=== PATIENT | male | born 1945 | race American Indian/Alaskan Native ===

== ENCOUNTER 2019-07-07 19:18 | Inpatient (IN) | payer MEDICARE ==
[2019-07-08] MEDS ORDERED: HALOPERIDOL LACTATE 5 MG/1 ML INJ IM PRN (21:12)
[2019-07-08] MEDS ORDERED: HALOPERIDOL 5 MG TAB PO PRN (21:12)
[2019-07-08] MEDS ORDERED: LORazepam 2 MG/ML VIAL IM PRN (21:12)
[2019-07-08] MEDS ORDERED: traZODone 50 MG TAB PO PRN (21:12)
[2019-07-08] MEDS: MELATONIN 5 MG TAB PO SCH (22:53)
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
[2019-07-09 10:03] LABS: Basophils # (Auto) 0.1 K/mm3 (0.0-0.1); Basophils % (Auto) 0.8 % (0.0-1.8); Eosinophils # (Auto) 0.1 K/mm3 (0.0-0.4); Eosinophils % (Auto) 0.9 % (0.0-4.3); Hematocrit 42.6 % (35.5-45.6); Hemoglobin 14.6 gm/dl (11.8-15.2); Lymphocytes # (Auto) 1.4 K/mm3 (1.2-5.4); Lymphocytes % (Auto) 19.5 % (13.4-35.0); Mean Corpuscular HGB Conc 34 % (32-34); Mean Corpuscular Volume 92 fl (84-94); Monocytes # (Auto) 0.7 K/mm3 (0.0-0.8); Monocytes % (Auto) 9.4 % (0.0-7.3); Platelet Count 247 K/mm3 (140-440); Red Blood Count 4.62 M/mm3 (3.65-5.03); Red Cell Distribution Width 13.3 % (13.2-15.2)
[2019-07-09 10:15] LABS: BUN/Creatinine Ratio 14; Blood Urea Nitrogen 15 mg/dL (9-20); Calcium 9.7 mg/dL (8.4-10.2); Chol/HDL Ratio 3.03 %; HDL Cholesterol 66 mg/dL (40-59); Hemolysis Index 7; LDL Cholesterol,Direct 124 mg/dL (50-130)
--- NOTE | 2019-07-09 15:54 | Consultation ---
History of Present Illness - Reason for Consult Consult date: 07/09/19 Medical management Requesting physician: TEZ SANDHU - History of Present Illness Patient is a 74-year-old male with no significant past medical history that I could see from chart review and patient is a poor historian except for early dementia and some aggressive behavior who is being admitted to our facility for mood stabilization and were consulted to assist with management of medical iss ues. Patient at the time of my examination denies any chest pain nausea vomiting or diarrhea. He continues to state that he would like to call his and has been calling her number she is now picking up. He is unable to tell me what medications that he is on at this time. He is ambulatory walking around without any complaints. SOCIAL HISTORY Marital Status: Living Arrangements: Lives with and children Employment Status: Retired Access to guns/weapons: NO Education: 3 years of College History of Abuse: NONE Alcohol: Social Drinker Tobacco: NO Legal History: NONE Past History Past Medical History: other (Dementia Alzheimer type) Past Surgical History: No surgical history Family history: no significant family history Medications and Allergies Allergies Allergy/AdvReac Type Severity Reaction Status Date / Time No Known Allergies Allergy Verified 07/07/19 19:24 Home Medications Medication Instructions Recorded Confirmed Last Taken Type No Known Home Medications [No 07/09/19 07/09/19 Unknown History Reported Home Medications] Active Meds: Active Medications Haloperidol (Haldol) 5 mg PO Q6H PRN PRN Reason: Agitation Haloperidol Lactate (Haldol) 5 mg IM Q6H PRN PRN Reason: Agitation Lorazepam (Ativan) 2 mg IM Q6H PRN PRN Reason: Agitation Melatonin (Melatonin) 5 mg PO QHS [facility] Last Admin: 07/08/19 22:53 Dose: Not Given Documented by: Trazodone HCl (Desyrel) 50 mg PO QHS PRN PRN Reason: insomnia Review of Systems Constitutional: no weight loss, no weight gain, no fever, no chills, no fatigue, no malaise, no lethargy Cardiovascular: no orthopnea, no palpitations, no edema, no paroxysmal nocturnal dyspnea, no high blood pressure Respiratory: no cough with sputum, no hemoptysis, no shortness of breath Gastrointestinal: no abdominal pain, no diarrhea, no constipation, no change in bowel habits, no melena Genitourinary Male: no hematuria, no discharge, no urinary hesitancy, no incontinence, no decreased libido, no testicular lump Musculoskeletal: no neck pain, no arm numbness/tingling, no shooting leg pain, no morning stiffness, no loss of height Integumentary: no pruritis, no sores, no jaundice, no lesions, no dryness, no striae, no onychomycosis Neurological: no transient paralysis, no numbness, no syncope, no ataxia, no vertigo, no confusion, no double vision, no burning pain Psychiatric: memory loss, paranoia, confusion, no change in sleep habits, no hypersomnia, no hopelessness, no difficulties concentrating Endocrine: no cold intolerance, no excessive thirst, no flushing Allergic/Immunologic: no urticaria, no angioedema Exam - Physical Exam Narrative exam: VITAL SIGNS: Reviewed. GENERAL: The patient appears normally developed, Vital signs as documented. HEAD: No signs of head trauma. EYES: Pupils are equal. Extraocular motions intact. EARS: Hearing grossly intact. MOUTH: Oropharynx is normal. NECK: No adenopathy, no JVD. CHEST: Chest with clear breath sounds bilaterally. No wheezes, rales, or rhonchi. CARDIAC: Regular rate and rhythm. S1 and S2, without murmurs, gallops, or rubs. VASCULAR: No Edema. Peripheral pulses normal and equal in all extremities. ABDOMEN: Soft, non tender and non distended. No rebound or guarding, and no masses palpated. Bowel Sounds normal. MUSCULOSKELETAL: Good range of motion of all major joints. Extremities without clubbing, cyanosis or edema. NEUROLOGIC EXAM: Alert and oriented x 3 No focal sensory or strength deficits. Speech normal. Follows commands. PSYCHIATRIC: Mood normal. SKIN: detial exam as documented in skin assessment - Constitutional Vitals: Temp Pulse Resp BP Pulse Ox 98.1 F 111 H 16 123/69 100 07/09/19 09:01 07/09/19 09:01 07/09/19 09:01 07/09/19 09:01 07/09/19 09:01 Results - Labs CBC & Chem 7: 07/09/19 09:32 07/09/19 09:32 Labs: Abnormal lab results 07/09/19 07/09/19 Range/Units 09:32 09:32 [place] % (Auto) 9.4 H (0.0-7.3) % Sodium 131 L (137-145) mmol/L Chloride 94.2 L (98-107) mmol/L Carbon Dioxide 21 L (22-30) mmol/L Glucose 113 H (75-100) mg/dL Cholesterol 200 H (50-199) mg/dL HDL Cholesterol 66 H (40-59) mg/dL Assessment and Plan Patient is a 74-year-old male with no significant past medical history that I could see from chart review and patient is a poor historian except for early dementia and some aggressive behavior who is being admitted to our facility for mood stabilization and were consulted to assist with management of medical issues. Patient at the time of my examination denies any chest pain nausea vomiting or diarrhea. He continues to state that he would like to call his and has been calling her number she is now picking up. He is unable to tell me what medications that he is on at this time. He is ambulatory walking around without any complaints. Hyponateremia Dementia-Alzheimer's type mood disorder plan Continue supportive care Management per Luther Repeat sodium level to ensure resolution dvt/gi prophy- pt ambulating and eating will follow with you to ensure hyponatremia resolution Thank you for the consult
[2019-07-09] MEDS ORDERED: oxyCODONE 5 MG TAB PO PRN (20:46)
[2019-07-09] MEDS: MELATONIN 5 MG TAB PO SCH (21:19)
--- NOTE | 2019-07-10 07:22 | Progress Note ---
Subjective Date of service: 07/10/19 Subjective Comment: I interviewed the patient this morning. Medical records reviewed and patient's progress was discussed with unit staff. Nursing staff reports that patient is alert and oriented x's 1. he stated he is at [employer]. patient is confused, calm, and cooperative. ambulates independently. skin intact. denies si/hi/avh/pain. will continue to monitor for safety. In my interview with the patient this morning, the patient reports he's in a good mood. He says his appetite is well and he is asking for breakfast during interview. He says he slept well last night. Mr Matamoros denies SI/HI. He also denies hallucinations of any kind. He is calm and cooperative. Review of Symptoms: Constitutional: Negative for weight loss ENT: Negative for stridor Respiratory: Negative for cough or hemoptysis All other systems reviewed and are negative MSE Appearance: Wearing appropriate clothing. Good hygiene Behavior: Pleasant and cooperative. Mood: "Good" Affect: Congruent with stated mood Thought Process: Goal directed Speech: Normal rate. Thought Content Harmfulness Denies SI/HI Hallucinations: patient denies Delusions: none elicited Consciousness: alert. Cognition/Memory: normal. Insight/Judgment: Limited. Treatment Plan Due to the psychiatric conditions and treatment listed in the Assessment and Plan - the patient requires continued hospitalization. Will continue inpatient treatment to allow for medication adjustment and monitoring. Will continue q15 min safety checks. Will encourage the use of environmental modifications and non-pharmacologic approaches for the management of behavioral and psychological symptoms. Medication adjustment made today: --- Will continue current psych medications Monitor for medication side effects. The patient will continue on medications for physical illnesses, and Hospitalist will closely monitor these Continue intensive physical and occupational therapies. Monitor patient's mood, sleep, appetite, and behavior closely. Encourage patient to participate in individual and group therapeutic sessions on the fermin. Will provide a safe and therapeutic environment for patient. Estimated length of stay --- days Medications and Allergies Allergies Allergy/AdvReac Type Severity Reaction Status Date / Time No Known Allergies Allergy Verified 07/07/19 19:24 Home Medications Medication Instructions Recorded Confirmed Last Taken Type No Known Home Medications [No 07/09/19 07/09/19 Unknown History Reported Home Medications] Active Meds: Active Medications Fish Oil (Fish Oil) 2,000 mg PO BID KYLE Haloperidol (Haldol) 5 mg PO Q6H PRN PRN Reason: Agitation Haloperidol Lactate (Haldol) 5 mg IM Q6H PRN PRN Reason: Agitation Lorazepam (Ativan) 2 mg IM Q6H PRN PRN Reason: Agitation Melatonin (Melatonin) 5 mg PO QHS [facility] Last Admin: 07/09/19 21:19 Dose: 5 mg Documented by: Oxycodone HCl (Roxicodone) 10 mg PO Q8H PRN PRN Reason: Pain, Moderate (4-6) Thiamine HCl (Vitamin B-1) 100 mg PO QDAY [facility] Trazodone HCl (Desyrel) 50 mg PO QHS PRN PRN Reason: insomnia Results - Results Labs/Vitals: Laboratory Last Values WBC 7.4 K/mm3 (4.5-11.0) 07/09/19 09:32 RBC 4.62 M/mm3 (3.65-5.03) 07/09/19 09:32 Hgb 14.6 gm/dl (11.8-15.2) 07/09/19 09:32 Hct 42.6 % (35.5-45.6) 07/09/19 09:32 MCV 92 fl (84-94) 07/09/19 09:32 MCH 32 pg (28-32) 07/09/19 09:32 MCHC 34 % (32-34) 07/09/19 09:32 RDW 13.3 % (13.2-15.2) 07/09/19 09:32 Plt Count 247 K/mm3 (140-440) 07/09/19 09:32 Lymph % (Auto) 19.5 % (13.4-35.0) 07/09/19 09:32 [place] % (Auto) 9.4 % (0.0-7.3) H 07/09/19 09:32 Eos % (Auto) 0.9 % (0.0-4.3) 07/09/19 09:32 Baso % (Auto) 0.8 % (0.0-1.8) 07/09/19 09:32 Lymph # 1.4 K/mm3 (1.2-5.4) 07/09/19 09:32 [place] # 0.7 K/mm3 (0.0-0.8) 07/09/19 09:32 Eos # 0.1 K/mm3 (0.0-0.4) 07/09/19 09:32 Baso # 0.1 K/mm3 (0.0-0.1) 07/09/19 09:32 Seg Neutrophils % 69.4 % (40.0-70.0) 07/09/19 09:32 Seg Neutrophils # 5.1 K/mm3 (1.8-7.7) 07/09/19 09:32 Sodium 131 mmol/L (137-145) L 07/09/19 09:32 Potassium 4.3 mmol/L (3.6-5.0) 07/09/19 09:32 Chloride 94.2 mmol/L (98-107) L 07/09/19 09:32 Carbon Dioxide 21 mmol/L (22-30) L 07/09/19 09:32 Anion Gap 20 mmol/L 07/09/19 09:32 BUN 15 mg/dL (9-20) 07/09/19 09:32 Creatinine 1.1 mg/dL (0.8-1.5) 07/09/19 09:32 Estimated GFR > 60 ml/min 07/09/19 09:32 BUN/Creatinine Ratio 14 % 07/09/19 09:32 Glucose 113 mg/dL (75-100) H 07/09/19 09:32 POC Glucose 89 (70-105) 07/09/19 06:30 Hemoglobin A1c 5.7 % (4-6) 07/09/19 09:32 Calcium 9.7 mg/dL (8.4-10.2) 07/09/19 09:32 Triglycerides 73 mg/dL (2-149) 07/09/19 09:32 Cholesterol 200 mg/dL (50-199) H 07/09/19 09:32 LDL Cholesterol Direct 124 mg/dL (50-130) 07/09/19 09:32 HDL Cholesterol 66 mg/dL (40-59) H 07/09/19 09:32 Cholesterol/HDL Ratio 3.03 % 07/09/19 09:32 Last Vital Signs Temp 98.1 F 07/09/19 19:33 Pulse 99 H 07/09/19 19:33 Resp 20 07/09/19 19:33 BP 141/79 07/09/19 19:33 Pulse Ox 99 07/09/19 19:33
[2019-07-10 08:10] LABS: BUN/Creatinine Ratio 15; Blood Urea Nitrogen 16 mg/dL (9-20); Calcium 9.7 mg/dL (8.4-10.2); Hemolysis Index 29
[2019-07-10] MEDS: OMEGA-3 FATTY ACIDS/FISH OIL 1 GRAM CAP PO SCH ×2 (09:30→21:13)
[2019-07-10] MEDS: THIAMINE 100 MG TAB PO SCH (09:31)
[2019-07-10 19:29] LABS: BUN/Creatinine Ratio 13; Blood Urea Nitrogen 17 mg/dL (9-20); Calcium 9.9 mg/dL (8.4-10.2); Hemolysis Index 4
[2019-07-10] MEDS: MELATONIN 5 MG TAB PO SCH (21:13)
--- NOTE | 2019-07-11 08:05 | Progress Note ---
Subjective Date of service: 07/11/19 Subjective Comment: Medical records reviewed and patient's progress was discussed with unit staff. Nursing staff reports that patient slept for 8+ hours during the night. No PRN meds required. No agitation observed. In my interview with the patient this morning, the patient reports he's in a good mood. He was up walking in the can. He's confused. He did not know where he was. He says his appetite is "bland" and he was waiting for breakfast. He says his "night went pretty good." Mr Matamoros denies SI/HI; stating "I love me" when asked. He also denies hallucinations of any kind. He is calm and cooperative. Review of Symptoms: Constitutional: Negative for weight loss ENT: Negative for stridor Respiratory: Negative for cough or hemoptysis All other systems reviewed and are negative MSE Appearance: Wearing appropriate clothing. Good hygiene Behavior: Pleasant, calm and cooperative. Mood: "Good" Affect: Congruent with stated mood Thought Process: Goal directed Speech: Normal rate. Thought Content Harmfulness Denies SI/HI Hallucinations: patient denies Delusions: none elicited Consciousness: alert. Cognition/Memory: confused Insight/Judgment: Limited. Treatment Plan Due to the psychiatric conditions and treatment listed in the Assessment and Plan - the patient requires continued hospitalization. Will continue inpatient treatment to allow for medication adjustment and monitoring. Will continue q15 min safety checks. Will encourage the use of environmental modifications and non-pharmacologic approaches for the management of behavioral and psychological symptoms. Medication adjustment made today: --- Will continue current psych medications Monitor for medication side effects. The patient will continue on medications for physical illnesses, and Hospitalist will closely monitor these Continue intensive physical and occupational therapies. Monitor patient's mood, sleep, appetite, and behavior closely. Encourage patient to participate in individual and group therapeutic sessions on the fermin. Will provide a safe and therapeutic environment for patient. Estimated length of stay --- days Medications and Allergies Allergies Allergy/AdvReac Type Severity Reaction Status Date / Time No Known Allergies Allergy Verified 07/07/19 19:24 Home Medications Medication Instructions Recorded Confirmed Last Taken Type No Known Home Medications [No 07/09/19 07/09/19 Unknown History Reported Home Medications] Active Meds: Active Medications Fish Oil (Fish Oil) 2,000 mg PO BID [facility] Last Admin: 07/10/19 21:13 Dose: 2,000 mg Documented by: Haloperidol (Haldol) 5 mg PO Q6H PRN PRN Reason: Agitation Haloperidol Lactate (Haldol) 5 mg IM Q6H PRN PRN Reason: Agitation Lorazepam (Ativan) 2 mg IM Q6H PRN PRN Reason: Agitation Melatonin (Melatonin) 5 mg PO QHS [facility] Last Admin: 07/10/19 21:13 Dose: 5 mg Documented by: Oxycodone HCl (Roxicodone) 10 mg PO Q8H PRN PRN Reason: Pain, Moderate (4-6) Thiamine HCl (Vitamin B-1) 100 mg PO QDAY [facility] Last Admin: 07/10/19 09:31 Dose: 100 mg Documented by: Trazodone HCl (Desyrel) 50 mg PO QHS PRN PRN Reason: insomnia Results - Results Labs/Vitals: Laboratory Last Values WBC 7.4 K/mm3 (4.5-11.0) 07/09/19 09:32 RBC 4.62 M/mm3 (3.65-5.03) 07/09/19 09:32 Hgb 14.6 gm/dl (11.8-15.2) 07/09/19 09:32 Hct 42.6 % (35.5-45.6) 07/09/19 09:32 MCV 92 fl (84-94) 07/09/19 09:32 MCH 32 pg (28-32) 07/09/19 09:32 MCHC 34 % (32-34) 07/09/19 09:32 RDW 13.3 % (13.2-15.2) 07/09/19 09:32 Plt Count 247 K/mm3 (140-440) 07/09/19 09:32 Lymph % (Auto) 19.5 % (13.4-35.0) 07/09/19 09:32 [place] % (Auto) 9.4 % (0.0-7.3) H 07/09/19 09:32 Eos % (Auto) 0.9 % (0.0-4.3) 07/09/19 09:32 Baso % (Auto) 0.8 % (0.0-1.8) 07/09/19 09:32 Lymph # 1.4 K/mm3 (1.2-5.4) 07/09/19 09:32 [place] # 0.7 K/mm3 (0.0-0.8) 07/09/19 09:32 Eos # 0.1 K/mm3 (0.0-0.4) 07/09/19 09:32 Baso # 0.1 K/mm3 (0.0-0.1) 07/09/19 09:32 Seg Neutrophils % 69.4 % (40.0-70.0) 07/09/19 09:32 Seg Neutrophils # 5.1 K/mm3 (1.8-7.7) 07/09/19 09:32 Sodium 131 mmol/L (137-145) L 07/10/19 18:52 Potassium 3.9 mmol/L (3.6-5.0) 07/10/19 18:52 Chloride 90.6 mmol/L (98-107) L 07/10/19 18:52 Carbon Dioxide 23 mmol/L (22-30) 07/10/19 18:52 Anion Gap 21 mmol/L 07/10/19 18:52 BUN 17 mg/dL (9-20) 07/10/19 18:52 Creatinine 1.3 mg/dL (0.8-1.5) 07/10/19 18:52 Estimated GFR > 60 ml/min 07/10/19 18:52 BUN/Creatinine Ratio 13 % 07/10/19 18:52 Glucose 152 mg/dL (75-100) H 07/10/19 18:52 POC Glucose 89 (70-105) 07/09/19 06:30 Hemoglobin A1c 5.7 % (4-6) 07/09/19 09:32 Calcium 9.9 mg/dL (8.4-10.2) 07/10/19 18:52 Triglycerides 73 mg/dL (2-149) 07/09/19 09:32 Cholesterol 200 mg/dL (50-199) H 07/09/19 09:32 LDL Cholesterol Direct 124 mg/dL (50-130) 07/09/19 09:32 HDL Cholesterol 66 mg/dL (40-59) H 07/09/19 09:32 Cholesterol/HDL Ratio 3.03 % 07/09/19 09:32 Last Vital Signs Temp 98.1 F 07/09/19 19:33 Pulse 99 H 07/09/19 19:33 Resp 20 07/09/19 19:33 BP 141/79 07/09/19 19:33 Pulse Ox 99 07/09/19 19:33
[2019-07-11] MEDS: OMEGA-3 FATTY ACIDS/FISH OIL 1 GRAM CAP PO SCH ×2 (09:34→21:40)
[2019-07-11] MEDS: THIAMINE 100 MG TAB PO SCH (09:34)
[2019-07-11] MEDS: MELATONIN 5 MG TAB PO SCH (22:00)
--- NOTE | 2019-07-12 09:46 | Progress Note ---
Subjective Date of service: 07/12/19 Principal diagnosis: Major Neurocognitive disorder with behavioral disturbance Subjective Comment: Medical records reviewed and patient's progress was discussed with unit staff. Nursing staff patient rested quietly throughout the night with no complaints. He presents as sleeping 8 plus hours. In my interview with the patient this morning, the patient is still in bed. He is calm, cooperative and pleasantly confused at times. He temporarily forgot he was in the hospital. He says his mood is "pretty good, and he's this way all the time" Mr. Wilburn says he slept well. He says his appetite is good and enjoyed his supper yesterday. He denies SI/HI and hallucinations of any kind. Review of Symptoms: Constitutional: Negative for weight loss ENT: Negative for stridor Respiratory: Negative for cough or hemoptysis All other systems reviewed and are negative MSE Appearance: Wearing appropriate clothing. Good hygiene Behavior: Pleasant, calm and cooperative. Mood: "pretty good" Affect: Congruent with stated mood Thought Process: confused at times Speech: Normal rate. Thought Content Harmfulness Denies SI/HI Hallucinations: patient denies Delusions: none elicited Consciousness: alert. Cognition/Memory: confused Insight/Judgment: Limited. Diagnoses: Major neurocoginitive disorder with behavioral disturbance Treatment Plan Due to the psychiatric conditions and treatment listed in the Assessment and Plan - the patient requires continued hospitalization. Will continue inpatient treatment to allow for medication adjustment and monitoring. Will continue q15 min safety checks. Will encourage the use of environmental modifications and non-pharmacologic approaches for the management of behavioral and psychological symptoms. Medication adjustment made today: No changes made to medications Will continue current psych medications Monitor for medication side effects. The patient will continue on medications for physical illnesses, and Hospitalist will closely monitor these Continue intensive physical and occupational therapies. Monitor patient's mood, sleep, appetite, and behavior closely. Encourage patient to participate in individual and group therapeutic sessions on the [place]. Will provide a safe and therapeutic environment for patient. Estimated length of stay 2 days Medications and Allergies Allergies Allergy/AdvReac Type Severity Reaction Status Date / Time No Known Allergies Allergy Verified 07/07/19 19:24 Home Medications Medication Instructions Recorded Confirmed Last Taken Type No Known Home Medications [No 07/09/19 07/09/19 Unknown History Reported Home Medications] Active Meds: Active Medications Fish Oil (Fish Oil) 2,000 mg PO BID [facility] Last Admin: 07/11/19 21:40 Dose: 2,000 mg Documented by: Haloperidol (Haldol) 5 mg PO Q6H PRN PRN Reason: Agitation Haloperidol Lactate (Haldol) 5 mg IM Q6H PRN PRN Reason: Agitation Lorazepam (Ativan) 2 mg IM Q6H PRN PRN Reason: Agitation Melatonin (Melatonin) 5 mg PO QHS [facility] Last Admin: 07/11/19 22:00 Dose: 5 mg Documented by: Oxycodone HCl (Roxicodone) 10 mg PO Q8H PRN PRN Reason: Pain, Moderate (4-6) Thiamine HCl (Vitamin B-1) 100 mg PO QDAY [facility] Last Admin: 07/11/19 09:34 Dose: 100 mg Documented by: Trazodone HCl (Desyrel) 50 mg PO QHS PRN PRN Reason: insomnia Results - Results Labs/Vitals: Laboratory Last Values WBC 7.4 K/mm3 (4.5-11.0) 07/09/19 09:32 RBC 4.62 M/mm3 (3.65-5.03) 07/09/19 09:32 Hgb 14.6 gm/dl (11.8-15.2) 07/09/19 09:32 Hct 42.6 % (35.5-45.6) 07/09/19 09:32 MCV 92 fl (84-94) 07/09/19 09:32 MCH 32 pg (28-32) 07/09/19 09:32 MCHC 34 % (32-34) 07/09/19 09:32 RDW 13.3 % (13.2-15.2) 07/09/19 09:32 Plt Count 247 K/mm3 (140-440) 07/09/19 09:32 Lymph % (Auto) 19.5 % (13.4-35.0) 07/09/19 09:32 [place] % (Auto) 9.4 % (0.0-7.3) H 07/09/19 09:32 Eos % (Auto) 0.9 % (0.0-4.3) 07/09/19 09:32 Baso % (Auto) 0.8 % (0.0-1.8) 07/09/19 09:32 Lymph # 1.4 K/mm3 (1.2-5.4) 07/09/19 09:32 [place] # 0.7 K/mm3 (0.0-0.8) 07/09/19 09:32 Eos # 0.1 K/mm3 (0.0-0.4) 07/09/19 09:32 Baso # 0.1 K/mm3 (0.0-0.1) 07/09/19 09:32 Seg Neutrophils % 69.4 % (40.0-70.0) 07/09/19 09:32 Seg Neutrophils # 5.1 K/mm3 (1.8-7.7) 07/09/19 09:32 Sodium 131 mmol/L (137-145) L 07/10/19 18:52 Potassium 3.9 mmol/L (3.6-5.0) 07/10/19 18:52 Chloride 90.6 mmol/L (98-107) L 07/10/19 18:52 Carbon Dioxide 23 mmol/L (22-30) 07/10/19 18:52 Anion Gap 21 mmol/L 07/10/19 18:52 BUN 17 mg/dL (9-20) 07/10/19 18:52 Creatinine 1.3 mg/dL (0.8-1.5) 07/10/19 18:52 Estimated GFR > 60 ml/min 07/10/19 18:52 BUN/Creatinine Ratio 13 % 07/10/19 18:52 Glucose 152 mg/dL (75-100) H 07/10/19 18:52 POC Glucose 89 (70-105) 07/09/19 06:30 Hemoglobin A1c 5.7 % (4-6) 07/09/19 09:32 Calcium 9.9 mg/dL (8.4-10.2) 07/10/19 18:52 Triglycerides 73 mg/dL (2-149) 07/09/19 09:32 Cholesterol 200 mg/dL (50-199) H 07/09/19 09:32 LDL Cholesterol Direct 124 mg/dL (50-130) 07/09/19 09:32 HDL Cholesterol 66 mg/dL (40-59) H 07/09/19 09:32 Cholesterol/HDL Ratio 3.03 % 07/09/19 09:32 Last Vital Signs Temp 97.9 F 07/11/19 08:22 Pulse 104 H 07/11/19 19:35 Resp 18 07/11/19 08:22 BP 144/86 07/11/19 19:35 Pulse Ox 99 07/11/19 19:35
[2019-07-12] MEDS: OMEGA-3 FATTY ACIDS/FISH OIL 1 GRAM CAP PO SCH ×2 (10:14→22:10)
[2019-07-12] MEDS: THIAMINE 100 MG TAB PO SCH (10:15)
[2019-07-12] MEDS: MELATONIN 5 MG TAB PO SCH (22:10)
[2019-07-13] MEDS: THIAMINE 100 MG TAB PO SCH (09:02)
[2019-07-13] MEDS: OMEGA-3 FATTY ACIDS/FISH OIL 1 GRAM CAP PO SCH ×2 (09:02→21:34)
--- NOTE | 2019-07-13 10:32 | Progress Note ---
Subjective Date of service: 07/13/19 Principal diagnosis: Major Neurocognitive disorder with behavioral disturbance Subjective Comment: Medical records reviewed and patient's progress was discussed with unit staff. Nursing staff states patient had a quiet evening. He does interact well with his peers. He still presents as sad and afraid. He is pleasant and cooperative. In my interview with the patient this morning, the patient is sitting in day room interacting with others. He is oriented x 2. He says his in a good mood and he slept good. Mr. Wilburn says his appetite is good, but says it's "too much of the same thing." He denies SI/HI, or hallucinations of any kind. Review of Symptoms: Constitutional: Negative for weight loss ENT: Negative for stridor Respiratory: Negative for cough or hemoptysis All other systems reviewed and are negative MSE Appearance: Wearing appropriate clothing. Good hygiene Behavior: Pleasant, calm and cooperative. Mood: "good" Affect: Congruent with stated mood Thought Process: confused at times Speech: Normal rate. Thought Content Harmfulness Denies SI/HI Hallucinations: patient denies Delusions: none elicited Consciousness: alert. Cognition/Memory: confused Insight/Judgment: Limited. Treatment Plan Due to the psychiatric conditions and treatment listed in the Assessment and Plan - the patient requires continued hospitalization. Will continue inpatient treatment to allow for medication adjustment and monitoring. Will continue q15 min safety checks. Will encourage the use of environmental modifications and non-pharmacologic approaches for the management of behavioral and psychological symptoms. Medication adjustment made today: No changes made to medications Will continue current psych medications Monitor for medication side effects. The patient will continue on medications for physical illnesses, and Hospitalist will closely monitor these Continue intensive physical and occupational therapies. Monitor patient's mood, sleep, appetite, and behavior closely. Encourage patient to participate in individual and group therapeutic sessions on the [place]. Will provide a safe and therapeutic environment for patient. Estimated length of stay 2 days Medications and Allergies Allergies Allergy/AdvReac Type Severity Reaction Status Date / Time No Known Allergies Allergy Verified 07/07/19 19:24 Home Medications Medication Instructions Recorded Confirmed Last Taken Type No Known Home Medications [No 07/09/19 07/09/19 Unknown History Reported Home Medications] Active Meds: Active Medications Fish Oil (Fish Oil) 2,000 mg PO BID [facility] Last Admin: 07/13/19 09:02 Dose: 2,000 mg Documented by: Haloperidol (Haldol) 5 mg PO Q6H PRN PRN Reason: Agitation Haloperidol Lactate (Haldol) 5 mg IM Q6H PRN PRN Reason: Agitation Lorazepam (Ativan) 2 mg IM Q6H PRN PRN Reason: Agitation Melatonin (Melatonin) 5 mg PO QHS [facility] Last Admin: 07/12/19 22:10 Dose: 5 mg Documented by: Oxycodone HCl (Roxicodone) 10 mg PO Q8H PRN PRN Reason: Pain, Moderate (4-6) Thiamine HCl (Vitamin B-1) 100 mg PO QDAY [facility] Last Admin: 07/13/19 09:02 Dose: 100 mg Documented by: Trazodone HCl (Desyrel) 50 mg PO QHS PRN PRN Reason: insomnia Results - Results Labs/Vitals: Laboratory Last Values WBC 7.4 K/mm3 (4.5-11.0) 07/09/19 09:32 RBC 4.62 M/mm3 (3.65-5.03) 07/09/19 09:32 Hgb 14.6 gm/dl (11.8-15.2) 07/09/19 09:32 Hct 42.6 % (35.5-45.6) 07/09/19 09:32 MCV 92 fl (84-94) 07/09/19 09:32 MCH 32 pg (28-32) 07/09/19 09:32 MCHC 34 % (32-34) 07/09/19 09:32 RDW 13.3 % (13.2-15.2) 07/09/19 09:32 Plt Count 247 K/mm3 (140-440) 07/09/19 09:32 Lymph % (Auto) 19.5 % (13.4-35.0) 07/09/19 09:32 [place] % (Auto) 9.4 % (0.0-7.3) H 07/09/19 09:32 Eos % (Auto) 0.9 % (0.0-4.3) 07/09/19 09:32 Baso % (Auto) 0.8 % (0.0-1.8) 07/09/19 09:32 Lymph # 1.4 K/mm3 (1.2-5.4) 07/09/19 09:32 [place] # 0.7 K/mm3 (0.0-0.8) 07/09/19 09:32 Eos # 0.1 K/mm3 (0.0-0.4) 07/09/19 09:32 Baso # 0.1 K/mm3 (0.0-0.1) 07/09/19 09:32 Seg Neutrophils % 69.4 % (40.0-70.0) 07/09/19 09:32 Seg Neutrophils # 5.1 K/mm3 (1.8-7.7) 07/09/19 09:32 Sodium 131 mmol/L (137-145) L 07/10/19 18:52 Potassium 3.9 mmol/L (3.6-5.0) 07/10/19 18:52 Chloride 90.6 mmol/L (98-107) L 07/10/19 18:52 Carbon Dioxide 23 mmol/L (22-30) 07/10/19 18:52 Anion Gap 21 mmol/L 07/10/19 18:52 BUN 17 mg/dL (9-20) 07/10/19 18:52 Creatinine 1.3 mg/dL (0.8-1.5) 07/10/19 18:52 Estimated GFR > 60 ml/min 07/10/19 18:52 BUN/Creatinine Ratio 13 % 07/10/19 18:52 Glucose 152 mg/dL (75-100) H 07/10/19 18:52 POC Glucose 89 (70-105) 07/09/19 06:30 Hemoglobin A1c 5.7 % (4-6) 07/09/19 09:32 Calcium 9.9 mg/dL (8.4-10.2) 07/10/19 18:52 Triglycerides 73 mg/dL (2-149) 07/09/19 09:32 Cholesterol 200 mg/dL (50-199) H 07/09/19 09:32 LDL Cholesterol Direct 124 mg/dL (50-130) 07/09/19 09:32 HDL Cholesterol 66 mg/dL (40-59) H 07/09/19 09:32 Cholesterol/HDL Ratio 3.03 % 07/09/19 09:32 Last Vital Signs Temp 98.0 F 07/12/19 08:54 Pulse 100 H 07/12/19 08:54 Resp 18 07/11/19 08:22 BP 124/72 07/12/19 08:54 Pulse Ox 100 07/12/19 08:54
[2019-07-13] MEDS: MELATONIN 5 MG TAB PO SCH (21:34)
--- NOTE | 2019-07-14 09:17 | Progress Note ---
Subjective Principal diagnosis: Major Neurocognitive disorder with behavioral disturbance Subjective Comment: Medical records reviewed and patient's progress was discussed with unit staff. Nursing staff states the patient is alert and oriented to person, medication compliant, good appetite,calm and cooperative, able to make needs, no behavioral issues, In my interview with the patient this morning, the patient is lying in bed. Easily arouses. He is pleasant, calm and cooperative. He is oriented x 1. He states he had a good night and slept well. He says his mood is good and he thinks "he's ready to go home." He denies hallucinations of any kind. Mr. Cosmo padron denies SI/HI. He says his appetite is good and the "food is pretty good." Review of Symptoms: Constitutional: Negative for weight loss ENT: Negative for stridor Respiratory: Negative for cough or hemoptysis All other systems reviewed and are negative MSE Appearance: Wearing appropriate clothing. In bed Behavior: Pleasant, calm and cooperative. Mood: "good" Affect: Congruent with stated mood Thought Process: confused at times Speech: Normal rate. Thought Content Harmfulness Denies SI/HI Hallucinations: patient denies Delusions: none elicited Consciousness: alert. Cognition/Memory: confused Insight/Judgment: Limited. Assessment Dementia, Agitation Treatment Plan Due to the psychiatric conditions and treatment listed in the Assessment and Plan - the patient requires continued hospitalization. Will continue inpatient treatment to allow for medication adjustment and monitoring. Will continue q15 min safety checks. Will encourage the use of environmental modifications and non-pharmacologic approaches for the management of behavioral and psychological symptoms. Medication adjustment made today: No changes made to medications Will continue current psych medications Monitor for medication side effects. The patient will continue on medications for physical illnesses, and Hospitalist will closely monitor these Continue intensive physical and occupational therapies. Monitor patient's mood, sleep, appetite, and behavior closely. Encourage patient to participate in individual and group therapeutic sessions on the fermin. Will provide a safe and therapeutic environment for patient. The patient will d/c to SNF once assessed by OT/PT Estimated length of stay 1 to 2 days Medications and Allergies Allergies Allergy/AdvReac Type Severity Reaction Status Date / Time No Known Allergies Allergy Verified 07/07/19 19:24 Home Medications Medication Instructions Recorded Confirmed Last Taken Type No Known Home Medications [No 07/09/19 07/09/19 Unknown History Reported Home Medications] Active Meds: Active Medications Fish Oil (Fish Oil) 2,000 mg PO BID [facility] Last Admin: 07/13/19 21:34 Dose: 2,000 mg Documented by: Haloperidol (Haldol) 5 mg PO Q6H PRN PRN Reason: Agitation Haloperidol Lactate (Haldol) 5 mg IM Q6H PRN PRN Reason: Agitation Lorazepam (Ativan) 2 mg IM Q6H PRN PRN Reason: Agitation Melatonin (Melatonin) 5 mg PO QHS [facility] Last Admin: 07/13/19 21:34 Dose: 5 mg Documented by: Oxycodone HCl (Roxicodone) 10 mg PO Q8H PRN PRN Reason: Pain, Moderate (4-6) Thiamine HCl (Vitamin B-1) 100 mg PO QDAY [facility] Last Admin: 07/13/19 09:02 Dose: 100 mg Documented by: Trazodone HCl (Desyrel) 50 mg PO QHS PRN PRN Reason: insomnia Results - Results Labs/Vitals: Laboratory Last Values WBC 7.4 K/mm3 (4.5-11.0) 07/09/19 09:32 RBC 4.62 M/mm3 (3.65-5.03) 07/09/19 09:32 Hgb 14.6 gm/dl (11.8-15.2) 07/09/19 09:32 Hct 42.6 % (35.5-45.6) 07/09/19 09:32 MCV 92 fl (84-94) 07/09/19 09:32 MCH 32 pg (28-32) 07/09/19 09:32 MCHC 34 % (32-34) 07/09/19 09:32 RDW 13.3 % (13.2-15.2) 07/09/19 09:32 Plt Count 247 K/mm3 (140-440) 07/09/19 09:32 Lymph % (Auto) 19.5 % (13.4-35.0) 07/09/19 09:32 [place] % (Auto) 9.4 % (0.0-7.3) H 07/09/19 09:32 Eos % (Auto) 0.9 % (0.0-4.3) 07/09/19 09:32 Baso % (Auto) 0.8 % (0.0-1.8) 07/09/19 09:32 Lymph # 1.4 K/mm3 (1.2-5.4) 07/09/19 09:32 [place] # 0.7 K/mm3 (0.0-0.8) 07/09/19 09:32 Eos # 0.1 K/mm3 (0.0-0.4) 07/09/19 09:32 Baso # 0.1 K/mm3 (0.0-0.1) 07/09/19 09:32 Seg Neutrophils % 69.4 % (40.0-70.0) 07/09/19 09:32 Seg Neutrophils # 5.1 K/mm3 (1.8-7.7) 07/09/19 09:32 Sodium 131 mmol/L (137-145) L 07/10/19 18:52 Potassium 3.9 mmol/L (3.6-5.0) 07/10/19 18:52 Chloride 90.6 mmol/L (98-107) L 07/10/19 18:52 Carbon Dioxide 23 mmol/L (22-30) 07/10/19 18:52 Anion Gap 21 mmol/L 07/10/19 18:52 BUN 17 mg/dL (9-20) 07/10/19 18:52 Creatinine 1.3 mg/dL (0.8-1.5) 07/10/19 18:52 Estimated GFR > 60 ml/min 07/10/19 18:52 BUN/Creatinine Ratio 13 % 07/10/19 18:52 Glucose 152 mg/dL (75-100) H 07/10/19 18:52 POC Glucose 89 (70-105) 07/09/19 06:30 Hemoglobin A1c 5.7 % (4-6) 07/09/19 09:32 Calcium 9.9 mg/dL (8.4-10.2) 07/10/19 18:52 Triglycerides 73 mg/dL (2-149) 07/09/19 09:32 Cholesterol 200 mg/dL (50-199) H 07/09/19 09:32 LDL Cholesterol Direct 124 mg/dL (50-130) 07/09/19 09:32 HDL Cholesterol 66 mg/dL (40-59) H 07/09/19 09:32 Cholesterol/HDL Ratio 3.03 % 07/09/19 09:32 Last Vital Signs Temp 98.3 F 07/13/19 20:13 Pulse 80 07/13/19 20:13 Resp 20 07/13/19 20:13 BP 149/61 07/13/19 20:13 Pulse Ox 99 07/13/19 20:13
[2019-07-14] MEDS: OMEGA-3 FATTY ACIDS/FISH OIL 1 GRAM CAP PO SCH ×2 (09:37→22:44)
[2019-07-14] MEDS: THIAMINE 100 MG TAB PO SCH (10:21)
[2019-07-14] MEDS: MELATONIN 5 MG TAB PO SCH (22:44)
[2019-07-15] MEDS: THIAMINE 100 MG TAB PO SCH (12:07)
[2019-07-15] MEDS: OMEGA-3 FATTY ACIDS/FISH OIL 1 GRAM CAP PO SCH ×2 (12:19→21:06)
[2019-07-15] MEDS: MELATONIN 5 MG TAB PO SCH (21:06)
--- NOTE | 2019-07-16 07:45 | Progress Note ---
Subjective Date of service: 07/16/19 Principal diagnosis: Major Neurocognitive disorder with behavioral disturbance Subjective Comment: Medical records reviewed and patient's progress was discussed with unit staff. Nursing staff states the patient is alert and oriented to person, interacts with selected peers, calm and cooperative, able to make needs known, medication compliant, good appetite, no behavioral issues In my interview with the patient this morning, the patient is lying in bed. Awake. He is pleasant, calm and cooperative. He is oriented x 1. He says his in a "great mood." Mr. Wilburn is concerned about going home and if he will be with his . He denies SI/HI or hallucinations of any kind. He says describes his appetite as good. Review of Symptoms: Constitutional: Negative for weight loss ENT: Negative for stridor Respiratory: Negative for cough or hemoptysis All other systems reviewed and are negative MSE Appearance: Wearing appropriate clothing. In bed Behavior: Pleasant, calm and cooperative. Mood: "great" Affect: Congruent with stated mood Thought Process: Pleasantly confused Speech: Normal rate and tone. Thought Content Harmfulness Denies SI/HI Hallucinations: patient denies Delusions: none elicited Consciousness: alert. Cognition/Memory: confused Insight/Judgment: Limited. Assessment Dementia, Agitation Treatment Plan Due to the psychiatric conditions and treatment listed in the Assessment and Plan - the patient requires continued hospitalization. Will continue inpatient treatment to allow for medication adjustment and monitoring. Will continue q15 min safety checks. Will encourage the use of environmental modifications and non-pharmacologic approaches for the management of behavioral and psychological symptoms. Medication adjustment made today: No changes made to medications Will continue current psych medications Monitor for medication side effects. The patient will continue on medications for physical illnesses, and Hospitalist will closely monitor these Continue intensive physical and occupational therapies. Monitor patient's mood, sleep, appetite, and behavior closely. Encourage patient to participate in individual and group therapeutic sessions on the fermin. Will provide a safe and therapeutic environment for patient. The patient will d/c to SNF once assessed by OT/PT Estimated length of stay 1 days Medications and Allergies Allergies Allergy/AdvReac Type Severity Reaction Status Date / Time No Known Allergies Allergy Verified 07/07/19 19:24 Home Medications Medication Instructions Recorded Confirmed Last Taken Type Melatonin [Melatonin 5MG TAB] 5 mg PO QPM #30 tablet 07/15/19 Unknown Rx Eden-3 Fatty Acids/Fish Oil [Fish 2,000 mg PO BID #60 capsule 07/15/19 Unknown Rx Oil] Thiamine [Vitamin B-1] 100 mg PO QDAY #30 tablet 07/15/19 Unknown Rx traZODone [Desyrel] 50 mg PO QHS PRN #30 tablet 07/15/19 Unknown Rx Active Meds: Active Medications Fish Oil (Fish Oil) 2,000 mg PO BID [facility] Last Admin: 07/15/19 21:06 Dose: 2,000 mg Documented by: Haloperidol (Haldol) 5 mg PO Q6H PRN PRN Reason: Agitation Haloperidol Lactate (Haldol) 5 mg IM Q6H PRN PRN Reason: Agitation Lorazepam (Ativan) 2 mg IM Q6H PRN PRN Reason: Agitation Melatonin (Melatonin) 5 mg PO QHS [facility] Last Admin: 07/15/19 21:06 Dose: 5 mg Documented by: Oxycodone HCl (Roxicodone) 10 mg PO Q8H PRN PRN Reason: Pain, Moderate (4-6) Thiamine HCl (Vitamin B-1) 100 mg PO QDAY [facility] Last Admin: 07/15/19 12:07 Dose: 100 mg Documented by: Trazodone HCl (Desyrel) 50 mg PO QHS PRN PRN Reason: insomnia Results - Results Labs/Vitals: Laboratory Last Values WBC 7.4 K/mm3 (4.5-11.0) 07/09/19 09:32 RBC 4.62 M/mm3 (3.65-5.03) 07/09/19 09:32 Hgb 14.6 gm/dl (11.8-15.2) 07/09/19 09:32 Hct 42.6 % (35.5-45.6) 07/09/19 09:32 MCV 92 fl (84-94) 07/09/19 09:32 MCH 32 pg (28-32) 07/09/19 09:32 MCHC 34 % (32-34) 07/09/19 09:32 RDW 13.3 % (13.2-15.2) 07/09/19 09:32 Plt Count 247 K/mm3 (140-440) 07/09/19 09:32 Lymph % (Auto) 19.5 % (13.4-35.0) 07/09/19 09:32 [place] % (Auto) 9.4 % (0.0-7.3) H 07/09/19 09:32 Eos % (Auto) 0.9 % (0.0-4.3) 07/09/19 09:32 Baso % (Auto) 0.8 % (0.0-1.8) 07/09/19 09:32 Lymph # 1.4 K/mm3 (1.2-5.4) 07/09/19 09:32 [place] # 0.7 K/mm3 (0.0-0.8) 07/09/19 09:32 Eos # 0.1 K/mm3 (0.0-0.4) 07/09/19 09:32 Baso # 0.1 K/mm3 (0.0-0.1) 07/09/19 09:32 Seg Neutrophils % 69.4 % (40.0-70.0) 07/09/19 09:32 Seg Neutrophils # 5.1 K/mm3 (1.8-7.7) 07/09/19 09:32 Sodium 131 mmol/L (137-145) L 07/10/19 18:52 Potassium 3.9 mmol/L (3.6-5.0) 07/10/19 18:52 Chloride 90.6 mmol/L (98-107) L 07/10/19 18:52 Carbon Dioxide 23 mmol/L (22-30) 07/10/19 18:52 Anion Gap 21 mmol/L 07/10/19 18:52 BUN 17 mg/dL (9-20) 07/10/19 18:52 Creatinine 1.3 mg/dL (0.8-1.5) 07/10/19 18:52 Estimated GFR > 60 ml/min 07/10/19 18:52 BUN/Creatinine Ratio 13 % 07/10/19 18:52 Glucose 152 mg/dL (75-100) H 07/10/19 18:52 POC Glucose 89 (70-105) 07/09/19 06:30 Hemoglobin A1c 5.7 % (4-6) 07/09/19 09:32 Calcium 9.9 mg/dL (8.4-10.2) 07/10/19 18:52 Triglycerides 73 mg/dL (2-149) 07/09/19 09:32 Cholesterol 200 mg/dL (50-199) H 07/09/19 09:32 LDL Cholesterol Direct 124 mg/dL (50-130) 07/09/19 09:32 HDL Cholesterol 66 mg/dL (40-59) H 07/09/19 09:32 Cholesterol/HDL Ratio 3.03 % 07/09/19 09:32 Last Vital Signs Temp 98.7 F 07/15/19 22:00 Pulse 87 07/15/19 22:00 Resp 18 07/15/19 22:00 BP 134/63 07/15/19 22:00 Pulse Ox 99 07/15/19 22:00
[2019-07-16] MEDS: THIAMINE 100 MG TAB PO SCH (09:31)
[2019-07-16] MEDS: OMEGA-3 FATTY ACIDS/FISH OIL 1 GRAM CAP PO SCH (09:32)
[2019-07-16] MEDS ORDERED: FLUoxetine 10 MG TAB PO SCH (10:00)
[2019-07-16] MEDS ORDERED: QUEtiapine 25 MG TAB PO SCH (10:00)
[2019-07-16 14:07] VITALS: BP 159/58
--- NOTE | 2019-07-16 14:22 | Discharge Summary ---
Providers - Providers Date of Admission: 07/08/19 21:00 Date of discharge: 07/16/19 Attending physician: TEZ SANDHU MD 07/08/19 21:16 Consult to Physician [CONS] Routine Comment: Consulting Provider: TAMIKA RAY Physician Instructions: Reason For Exam: H&P AND MEDICAL MGMT 07/14/19 09:22 Occupational Therapy Evaluate and Treat [CONS] Routine Comment: Reason For Exam: to assess needs 07/14/19 09:23 Physical Therapy Evaluation and Treat [CONS] Routine Comment: Reason For Exam: to assess needs and fall risk Hospitalization Condition: Stable Hospital course: The patient was provided inpatient psychiatric treatment with safe and supportive environment, group/individual therapy, psychiatric medication, medication adjustment, adverse effect monitor, medical evaluation, medical treatment, social service assessment, social support meeting, placement assessment and psycho-education. The patients mood, cognition, behavior, motiv ation, compliance to treatment and appreciation on family/social support are improved and stabilized. At the time of discharge, the patient had no suicidal ideas, no homicidal ideas, no aggressive thoughts, no endangering behavior and no debilitating adverse effects. The patient agreed on the treatment plan, understood the risk, benefit, alternative treatment, potential consequence of no treatment, and gave informed consent. Disposition: DC-01 TO HOME OR SELFCARE Time spent for discharge: 37 Allergies/Adverse Reactions: Allergies No Known Allergies Allergy (Verified 07/07/19 19:24) Vital Signs: Last Vital Signs Temp 97.9 F 07/16/19 09:08 Pulse 101 H 07/16/19 09:08 Resp 16 07/16/19 09:08 BP 159/58 07/16/19 09:08 Pulse Ox 100 07/16/19 09:08 Last Lab: Laboratory Last Values WBC 7.4 K/mm3 (4.5-11.0) 07/09/19 09:32 RBC 4.62 M/mm3 (3.65-5.03) 07/09/19 09:32 Hgb 14.6 gm/dl (11.8-15.2) 07/09/19 09:32 Hct 42.6 % (35.5-45.6) 07/09/19 09:32 MCV 92 fl (84-94) 07/09/19 09:32 MCH 32 pg (28-32) 07/09/19 09:32 MCHC 34 % (32-34) 07/09/19 09:32 RDW 13.3 % (13.2-15.2) 07/09/19 09:32 Plt Count 247 K/mm3 (140-440) 07/09/19 09:32 Lymph % (Auto) 19.5 % (13.4-35.0) 07/09/19 09:32 Wood % (Auto) 9.4 % (0.0-7.3) H 07/09/19 09:32 Eos % (Auto) 0.9 % (0.0-4.3) 07/09/19 09:32 Baso % (Auto) 0.8 % (0.0-1.8) 07/09/19 09:32 Lymph # 1.4 K/mm3 (1.2-5.4) 07/09/19 09:32 Wood # 0.7 K/mm3 (0.0-0.8) 07/09/19 09:32 Eos # 0.1 K/mm3 (0.0-0.4) 07/09/19 09:32 Baso # 0.1 K/mm3 (0.0-0.1) 07/09/19 09:32 Seg Neutrophils % 69.4 % (40.0-70.0) 07/09/19 09:32 Seg Neutrophils # 5.1 K/mm3 (1.8-7.7) 07/09/19 09:32 Sodium 131 mmol/L (137-145) L 07/10/19 18:52 Potassium 3.9 mmol/L (3.6-5.0) 07/10/19 18:52 Chloride 90.6 mmol/L (98-107) L 07/10/19 18:52 Carbon Dioxide 23 mmol/L (22-30) 07/10/19 18:52 Anion Gap 21 mmol/L 07/10/19 18:52 BUN 17 mg/dL (9-20) 07/10/19 18:52 Creatinine 1.3 mg/dL (0.8-1.5) 07/10/19 18:52 Estimated GFR > 60 ml/min 07/10/19 18:52 BUN/Creatinine Ratio 13 % 07/10/19 18:52 Glucose 152 mg/dL (75-100) H 07/10/19 18:52 POC Glucose 89 (70-105) 07/09/19 06:30 Hemoglobin A1c 5.7 % (4-6) 07/09/19 09:32 Calcium 9.9 mg/dL (8.4-10.2) 07/10/19 18:52 Triglycerides 73 mg/dL (2-149) 07/09/19 09:32 Cholesterol 200 mg/dL (50-199) H 07/09/19 09:32 LDL Cholesterol Direct 124 mg/dL (50-130) 07/09/19 09:32 HDL Cholesterol 66 mg/dL (40-59) H 07/09/19 09:32 Cholesterol/HDL Ratio 3.03 % 07/09/19 09:32 Core Measure Documentation - Palliative Care Palliative Care/ Comfort Measures: Not Applicable - Core Measures Any of the following diagnoses?: none Exam - Constitutional Vitals: Temp Pulse Resp BP Pulse Ox 97.9 F 101 H 16 159/58 100 07/16/19 09:08 07/16/19 09:08 07/16/19 09:08 07/16/19 09:08 07/16/19 09:08 General appearance: Present: no acute distress, well-nourished - EENT Eyes: Present: PERRL, EOM intact ENT: hearing intact, clear oral mucosa - Neck Neck: Present: supple, normal ROM - Respiratory Respiratory effort: normal Plan Activity: advance as tolerated Weight Bearing Status: Weight Bear as Tolerated Care Plan Goals: Maintain good and stable mental health Plan of Treatment: The patient should be compliant with medications, not to use drugs and not to drink alcohol. The patient understands that if suicidal ideas, homicidal ideas, or any endangering thoughts arise, the patient should immediately seek for emergent assistance including but not limited to crisis hot line and emergency room. Follow up with outpatient Psychiatrist and PCP within 7 - 14 days of discharge. Health Concerns: Dementia Follow up with: INNA BUDRICK [Other] - 7 Days Prescriptions: traZODone [Desyrel] 50 mg PO QHS PRN #30 tablet PRN Reason: insomnia [place]-3 Fatty Acids/Fish Oil [Fish Oil] 2,000 mg PO BID #60 capsule Melatonin [Melatonin 5MG TAB] 5 mg PO QPM #30 tablet Thiamine [Vitamin B-1] 100 mg PO QDAY #30 tablet
== END 2019-07-16 16:48 | disposition home or self-care (01) | DRG 57 ==
LOC: UNDOADMIN 19:18 → 3A 19:18 → 5A 07-08 21:00
PROVIDERS: ADMIT Psychiatry & Neurology Psychiatry; ATTEND Psychiatry & Neurology Psychiatry
DX: G30.8 Other Alzheimer's disease (principal); E87.1 Hypo-osmolality and hyponatremia; F02.81 Dementia in other diseases classified elsewhere, unspecified severity, with behavioral disturbance; F01.51 Vascular dementia, unspecified severity, with behavioral disturbance; F39 Unspecified mood [affective] disorder; F01.50 Vascular dementia, unspecified severity, without behavioral disturbance, psychotic disturbance, mood disturbance, and anxiety; Z79.899 Other long term (current) drug therapy; Z91.83 Wandering in diseases classified elsewhere
CPT/HCPCS: 36415; 80048; 80061; 82962; 83036; 85025; G0378; J1630